=== PATIENT | female | born 1990 | race Two or more races ===

== ENCOUNTER 2023-01-22 07:33 | Outpatient (CLI) | payer OTHER | END 2023-01-22 07:41 | disposition home or self-care (01) | LOC: RAD 07:33 | PROVIDERS: ATTEND Internal Medicine Hematology & Oncology | DX: D72.819 Decreased white blood cell count, unspecified (principal); D72.821 Monocytosis (symptomatic) ==

== ENCOUNTER 2023-04-09 06:34 | Emergency (ER) | payer OTHER ==
[~2023-04-09] VITALS: Ht 162.6 cm; Wt 44.5 kg
== END 2023-04-09 07:16 | disposition home or self-care (01) ==
LOC: ER 06:34
DX: K21.9 Gastro-esophageal reflux disease without esophagitis (principal); R11.10 Vomiting, unspecified; Z88.8 Allergy status to other drugs, medicaments and biological substances